=== PATIENT | male | born 1965 | race Caucasian/White ===

== ENCOUNTER 2016-10-01 01:04 | Emergency (ER) | payer BC | END 2016-10-01 03:05 | disposition left against medical advice (07) | LOC: ER1 01:04 | DX: Z53.21 Procedure and treatment not carried out due to patient leaving prior to being seen by health care provider (principal) ==

== ENCOUNTER 2020-11-30 23:31 | Emergency (ER) | payer OTHER ==
[~2020-11-30 23:31] MED LIST: BENADRYL 50MG C50 MG PO; IBUPROFEN600 MG PO; PEPCID20 MG PO; PREDNISONE20 MG PO; PREDNISONE50 MG PO; TAMIFLU75 MG PO
== END 2020-12-01 01:40 | disposition home or self-care (01) ==
LOC: ER1 23:31
DX: R21 Rash and other nonspecific skin eruption (principal); T36.4X5A Adverse effect of tetracyclines, initial encounter; L56.8 Other specified acute skin changes due to ultraviolet radiation; I10 Essential (primary) hypertension; Z88.0 Allergy status to penicillin; Z86.718 Personal history of other venous thrombosis and embolism
CPT/HCPCS: 99283

== ENCOUNTER 2021-02-16 15:28 | Inpatient (IN) | payer OTHER ==
[~2021-02-16] VITALS: Ht 177.8 cm; Wt 86.2 kg
[2021-02-16] MEDS ORDERED: ASPIRIN81 MG PO (23:05)
[2021-02-16] MEDS ORDERED: NEXIUM40 MG PO (23:05)
[2021-02-16] MEDS ORDERED: LISINOPRIL20 MG PO (23:05)
[2021-02-16 23:45] LABS: HEMOGLOBIN 13.3 gm/dl (14.0-17.5); RED BLOOD COUNT 4.25 M/UL (4.20-5.50); WHITE BLOOD COUNT 12.2 K/UL (4.5-11.0)
[2021-02-17 00:06] LABS: BUN/CREATININE RATIO 16 (0-10)
[2021-02-17 14:32] LABS: HEMOGLOBIN 13.7 gm/dl (14.0-17.5); RED BLOOD COUNT 4.39 M/UL (4.20-5.50); WHITE BLOOD COUNT 11.7 K/UL (4.5-11.0)
[2021-02-18 09:26] LABS: HEMOGLOBIN 13.8 gm/dl (14.0-17.5); RED BLOOD COUNT 4.5 M/UL (4.20-5.50); WHITE BLOOD COUNT 10.3 K/UL (4.5-11.0)
[2021-02-18 09:50] LABS: BUN/CREATININE RATIO 17 (0-10)
[2021-02-19 09:34] LABS: HEMOGLOBIN 13.1 gm/dl (14.0-17.5); RED BLOOD COUNT 4.2 M/UL (4.20-5.50); WHITE BLOOD COUNT 9.7 K/UL (4.5-11.0)
[2021-02-19 09:51] LABS: BUN/CREATININE RATIO 17 (0-10)
[2021-02-20 08:19] LABS: HEMOGLOBIN 12.8 gm/dl (14.0-17.5); RED BLOOD COUNT 4.16 M/UL (4.20-5.50); WHITE BLOOD COUNT 9.6 K/UL (4.5-11.0)
[2021-02-20 08:54] LABS: BUN/CREATININE RATIO 19 (0-10)
[2021-02-20] MEDS ORDERED: ELIQUIS 5 MG TAB5 MG PO (09:47)
[2021-02-20] MEDS ORDERED: ELIQUIS5 MG PO (09:47)
[2021-02-20 12:13] LABS: PROTEIN S, TOTAL 115 % (60-150)
[2021-02-20 14:13] LABS: PROTEIN C-FUNCTIONAL 116 % (73-180); PROTEIN S-FUNCTIONAL 66 % (63-140)
[2021-02-21 06:10] LABS: ANTIPHOSPHATIDYLSERINE IGA 2 APS IgA (0-20); ANTIPHOSPHATIDYLSERINE IGG 18 Units (0-30); ANTIPHOSPHATIDYLSERINE IGM <22 MPS IgM (<22)
[2021-02-21 09:13] LABS: DRVVT 40.5 sec (0.0-47.0); LUPUS REFLEX INTERPRETATION Comment: (.); PT 10.6 sec (9.1-12.0); PT 1:1NP 10.3 sec (9.1-12.0); PTT-LA 43.8 sec (0.0-51.9); THROMBIN TIME 13.6 sec (0.0-23.0)
== END 2021-02-20 12:12 | disposition home or self-care (01) | DRG 300 ==
LOC: ER1 15:28 → M/S 18:07 → CDU 18:07 → M/S 23:03
PROVIDERS: ADMIT Internal Medicine
DX: I82.4Z2 Acute embolism and thrombosis of unspecified deep veins of left distal lower extremity (principal); D68.51 Activated protein C resistance; Z20.822 Contact with and (suspected) exposure to COVID-19; K21.9 Gastro-esophageal reflux disease without esophagitis; F17.210 Nicotine dependence, cigarettes, uncomplicated; I87.8 Other specified disorders of veins; I10 Essential (primary) hypertension; Z79.82 Long term (current) use of aspirin; Z79.01 Long term (current) use of anticoagulants; Z86.718 Personal history of other venous thrombosis and embolism; Z95.828 Presence of other vascular implants and grafts; Z82.79 Family history of other congenital malformations, deformations and chromosomal abnormalities; Z82.3 Family history of stroke; Z80.0 Family history of malignant neoplasm of digestive organs; Z80.2 Family history of malignant neoplasm of other respiratory and intrathoracic organs; Z87.442 Personal history of urinary calculi; Z88.0 Allergy status to penicillin; Z88.8 Allergy status to other drugs, medicaments and biological substances
CPT/HCPCS: 36415; 80053; 81001; 81240; 81241; 85025; 85300; 85301; 85302; 85305; 85379; 85611; 85730; 87086; 93971; 99284; C9113; J1650; U0002

== ENCOUNTER 2021-02-23 19:59 | Emergency (ER) | payer OTHER ==
[~2021-02-23 19:59] MED LIST changes: +ASPIRIN81 MG PO; +ELIQUIS 5 MG TAB5 MG PO; +ELIQUIS5 MG PO; +LISINOPRIL20 MG PO; +NEXIUM40 MG PO
[2021-02-23 21:17] LABS: HEMOGLOBIN 12.9 gm/dl (14.0-17.5); RED BLOOD COUNT 4.17 M/UL (4.20-5.50); WHITE BLOOD COUNT 11.7 K/UL (4.5-11.0)
== END 2021-02-23 21:55 | disposition home or self-care (01) ==
LOC: ER1 19:59
PROVIDERS: Emergency Medicine
DX: K06.8 Other specified disorders of gingiva and edentulous alveolar ridge (principal); I10 Essential (primary) hypertension; Z86.711 Personal history of pulmonary embolism; Z88.0 Allergy status to penicillin; Z86.718 Personal history of other venous thrombosis and embolism
CPT/HCPCS: 85025; 85610; 85730; 99283